=== PATIENT | male | born 1945 | race Caucasian/White ===

== ENCOUNTER 2018-02-05 10:43 | Emergency (ER) | payer MEDICARE ==
[~2018-02-05] VITALS: Ht 180.3 cm; Wt 104.3 kg
--- NOTE | 2018-02-05 11:19 | PHYS DOC ---
Past History Past Medical History: High Cholesterol, Hypertension Additional Past Medical Histor: history of chondrosarcoma left hip Past Surgical History: Hip Replacement Smoking: Non-smoker Alcohol Use: None Drug Use: None Adult General Chief Complaint Chief Complaint: HIP PAIN [facility] HPI 72-year-old male patient complaining of exertional right hip pain for the last 2 days injury. Patient denies focal neuro deficit and pain at rest and rated his pain 9/10 as a sharp pain with activity. Patient states he has history of chondrosarcoma and surgery in the same area and has appointment with his cancer physician in 2 days. Review of Systems Review of Systems Constitutional: Denies fever or chills [] Eyes: Denies change in visual acuity, redness, or eye pain [] HENT: Denies nasal congestion or sore throat [] Respiratory: Denies cough or shortness of breath [] Cardiovascular: No additional information not addressed in HPI [] GI: Denies abdominal pain, nausea, vomiting, bloody stools or diarrhea [] : Denies dysuria or hematuria [] Musculoskeletal: Reports joint pain, denies back pain Integument: Denies rash or skin lesions [] Neurologic: Denies headache, focal weakness or sensory changes [] Endocrine: Denies polyuria or polydipsia [] All other systems were reviewed and found to be within normal limits, except as documented in this note. Physical Exam Physical Exam Constitutional: Well developed, well nourished, mild distress, non-toxic appearance. [] HENT: Normocephalic, atraumatic Eyes: PERRLA, EOMI, conjunctiva normal, no discharge. [] Neck: Normal range of motion, no tenderness, supple, no stridor. [] Cardiovascular:Heart rate regular rhythm, no murmur [] Lungs & Thorax: Bilateral breath sounds clear to auscultation [] Extremities: Right hip without deformity or sign of injury, painful range of motion without neurovascular deficit, no tenderness, no cyanosis, no clubbing, ROM intact, no edema. [] Neurologic: Alert and oriented X 3, normal motor function, normal sensory function, no focal deficits noted. [] Psychologic: Affect normal, judgement normal, mood normal. [] EKG EKG [] Radiology/Procedures Radiology/Procedures [][address] [address] IMAGING REPORT Signed PATIENT: ERIN LYNN ACCOUNT: [id number] : 1945 LOCATION: ER AGE: 72 SEX: M EXAM STATUS: REG ER ORD. PHYSICIAN: LALA BUSBY MD REASON: right hip pain, history of chondrosarcoma of right hip PROCEDURE: CT LOWER EXTREMITY WO RIGHT CT scan of the right hip without contrast 02/05/2018 CLINICAL HISTORY: Right hip pain for 2 days. History of chondrosarcoma post surgery. TECHNIQUE: Unenhanced, contiguous, 0.625 mm axial sections were obtained through the right hip. 5 mm reconstructed sagittal, axial and coronal images were obtained. One or more of the following individualized dose reduction techniques were utilized for this study: 1. Automated exposure control. 2. Adjustment of the mA and/or kV according to patient size. 3. Use of iterative reconstruction technique. FINDINGS: The patient is post resection of the right femoral head, neck, the majority of the intertrochanteric region and the proximal diaphysis of the right femur with placement of a right hip replacement and long stem femoral component which extends to the mid/distal diaphysis of the right femur. The prosthetic components are intact. No fracture or dislocation is seen. No recurrent soft tissue mass is noted. IMPRESSION: Postsurgical changes are seen as outlined above. No acute abnormality is seen. Electronically signed by: Harjit Guerra MD (02/05/2018 12:14 PM) [facility] DICTATED AND SIGNED BY: HARJIT GUERRA MD DATE: 02/05/18 1207 CC: LALA BUSBY MD; CHATO DAMON MD ~ Course & Med Decision Making Course & Med Decision Making Pertinent Imaging studies reviewed. (See chart for details) Evaluation of patient in ER showed 72-year-old male patient with history of chondrosarcoma and right hip replacement with complaining of right hip pain for 2 days. Patient had unremarkable physical exam. CT of right hip did not show sign of recurrence of cancer. Patient did not want pain medication in ER. Patient has appointment with his cancer physician in 2 days. Patient did not take any pain medication for the last 2 days and instructed to take over-the- counter Tylenol and prescription for Ultram was given. Dragon Brennanimer Dragon Disclaimer This electronic medical record was generated, in whole or in part, using a voice recognition dictation system. Departure Departure: Impression: Primary Impression: Strain of right hip Additional Impression: History of chondrosarcoma Disposition: HOME, SELF-CARE (At 1235) Condition: STABLE Referrals: CHATO DAMON MD (PCP) Patient Instructions: Muscle Strain Additional Instructions: Follow-up with your cancer physician as scheduled in 2 days Follow-up with your primary care physician in 3-5 days Return to ER if not getting better Scripts Tramadol Hcl (ULTRAM) 50 Mg Tablet 50 MG PO PRN Q6HRS PRN for PAIN, #20 TAB Prov: LALA BUSBY MD 02/05/18 Problem Qualifiers LALA BUSBY MD Feb 05, 2018 11:19
--- NOTE | 2018-02-05 12:17 | RAD ---
CT scan of the right hip without contrast 02/05/2018 CLINICAL HISTORY: Right hip pain for 2 days. History of chondrosarcoma post surgery. TECHNIQUE: Unenhanced, contiguous, 0.625 mm axial sections were obtained through the right hip. 5 mm reconstructed sagittal, axial and coronal images were obtained. One or more of the following individualized dose reduction techniques were utilized for this study: 1. Automated exposure control. 2. Adjustment of the mA and/or kV according to patient size. 3. Use of iterative reconstruction technique. FINDINGS: The patient is post resection of the right femoral head, neck, the majority of the intertrochanteric region and the proximal diaphysis of the right femur with placement of a right hip replacement and long stem femoral component which extends to the mid/distal diaphysis of the right femur. The prosthetic components are intact. No fracture or dislocation is seen. No recurrent soft tissue mass is noted. IMPRESSION: Postsurgical changes are seen as outlined above. No acute abnormality is seen. Electronically signed by: Harjit Guerra MD (02/05/2018 12:14 PM) [facility]
[2018-02-05] MEDS ORDERED: TRAM-48 PO (12:35)
== END 2018-02-05 12:40 | disposition home or self-care (01) ==
LOC: ER 10:43
DX: S76.011A Strain of muscle, fascia and tendon of right hip, initial encounter (principal); Z85.89 Personal history of malignant neoplasm of other organs and systems; E78.00 Pure hypercholesterolemia, unspecified; I10 Essential (primary) hypertension; X58.XXXA Exposure to other specified factors, initial encounter; Y93.89 Activity, other specified; Y99.8 Other external cause status; Y92.89 Other specified places as the place of occurrence of the external cause
CPT/HCPCS: 73700; 99284-25